=== PATIENT | female | born 1960 | race Caucasian/White ===

== ENCOUNTER 2016-09-25 22:20 | Inpatient (IN) | payer OTHER ==
[~2016-09-25] VITALS: Ht 160 cm; Wt 71.1 kg
[2016-09-26] VITALS (10 sets, daily range): BP systolic 114–154; BP diastolic 58–79; PULSE 85–90; RESP 14–19; TEMP 97.4–100.6; O2SAT 93–100
[2016-09-26] MEDS ORDERED: LORazepam 0.5 MG TAB PO PRN (06:30)
[2016-09-26] MEDS ORDERED: PROCHLORPERAZINE INJ 10 MG/2 ML VIAL IV PRN (06:30)
[2016-09-26 08:07] LABS: MEAN CORPUSCULAR HEMOGLOBIN 28.9 PG (27.0-34.0); MEAN CORPUSCULAR HGB CONC 35.7 % (32.0-36.0); RED BLOOD COUNT 2.49 MIL/MM3 (4.00-5.30); RED CELL DISTRIBUTION WIDTH 15.1 % (11.6-17.2); WHITE BLOOD COUNT 15.4 TH/MM3 (4.0-11.0)
[2016-09-26] MEDS ORDERED: LORazepam 2 MG/ML VIAL IV PUSH ONE ×2 (08:15→09:00)
[2016-09-26] MEDS ORDERED: MORPHINE SULFATE 4 MG/ML INJ IV PUSH ONE ×2 (08:15→09:00)
[2016-09-26 08:18] LABS: ALT (GPT) 14 U/L (10-53); ANION GAP 9 MEQ/L (5-15); AST (GOT) 16 U/L (15-37); BICARBONATE 24.6 MEQ/L (21.0-32.0); BLOOD UREA NITROGEN 9 MG/DL (7-18); CHLORIDE 108 MEQ/L (98-107); GLOMERULAR FILTRATION RATE 66 ML/MIN (>89); POTASSIUM 3.9 MEQ/L (3.5-5.1); SODIUM (NA) 142 MEQ/L (136-145); URIC ACID 8.3 MG/DL (2.6-6.0)
[2016-09-26 08:20] LABS: ALKALINE PHOSPHATASE 97 U/L (45-117); LDH SERUM 376 U/L (84-246); TOTAL BILIRUBIN ADULT 1.2 MG/DL (0.2-1.0)
[2016-09-26 08:27] LABS: HEMO FLAGS AUTO DIFF
[2016-09-26 08:29] LABS: HEMATOCRIT 20.1 % (35.0-46.0); PLATELET COUNT 16 TH/MM3 (150-450)
[2016-09-26 08:46] LABS: BLASTS 13 % (0-0); CORRECTED NUCLEATED RBC 2 /100 WBC (0-0); EOSINOPHILS 2 % (0-4); METAMYELOCYTES 1 % (0-1); NEUTROPHIL # MANUAL DIFF 0.2 TH/MM3 (1.8-7.7); WBC DIFF SAMPLE 100
[2016-09-26 08:49] LABS: OVALOCYTES 1+ (NORMAL); PLATELET ESTIMATE SMEAR RARE (NORMAL); PLATELET MORPHOLOGY NORMAL (NORMAL); SCAN/DIFF FINAL DIFF MANUAL
[2016-09-26] MEDS: CEFEPIME INJ 2,000 MG in SODIUM CHLORIDE 0.9% INJ 100 ML IV SCH ×2 (08:58→17:29)
[2016-09-26] MEDS ORDERED: ACETAMINOPHEN 325 MG TAB PO PRN (09:00)
[2016-09-26] MEDS ORDERED: diphenhydrAMINE HCL 25 MG CAP PO PRN (09:00)
[2016-09-26] MEDS ORDERED: SODIUM CHLOR 0.9% 250 ML INJ 250 ML IV ONE (09:00)
[2016-09-26 09:06] LABS: BONE MARROW PROCESSING COMPLETE; IRON STAIN DONE; JENNER GIEMSA STAIN DONE
[2016-09-26] MEDS: OXYMETAZOLINE HCL 0.05% 15 ML NASAL SPRAY NASAL SCH ×2 (09:22→21:00)
[2016-09-26] MEDS: AMINOCAPROIC ACID 500 MG TAB PO SCH ×3 (09:22→17:29)
--- NOTE | 2016-09-26 10:09 | HHI.PR ---
Objective Objective Results - Vital Signs Date Time Temp Pulse Resp B/P Pulse Ox O2 Delivery O2 Flow Rate FiO2 09/26/16 08:00 98.5 86 16 121/58 93 09/26/16 04:00 98.8 85 18 116/61 97 09/26/16 01:15 100.2 90 19 154/72 100 I/O 09/25/16 09/25/16 09/25/16 09/26/16 09/26/16 09/26/16 07:00 15:00 23:00 07:00 15:00 23:00 Intake Total 240 ml Balance 240 ml Intake Oral 240 ml # Voids 5 # Bowel Movements 1 Result Diagram: 09/26/1627 09/26/16 07 A/P Assessment and Plan [id number], Possible leukemia epistasis thrombocytopenia anemia severe fatique, weakness anorexia, 7 lb weight loss bone marrow biopsy done this am. Claire Shabazz Sep 26, 2016 10:09
--- NOTE | 2016-09-26 10:34 | MB ---
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 She noted some fatigue and easy bruising around August accompanied with mild cough and fever off and on. She also noted some decreased eating and decreased appetite. She has noted a seven pound weight loss but states that she has been holding some fluid for the past week and that seven pounds has been regained. The patient was sent over to [facility] to be seen by Dr. Fraser. They have just completed a bone marrow biopsy. She is resting in the bed. is at her side. She is alert, oriented and a good historian. The patient also notes some mild diarrhea, usually related to antibiotics. PAST MEDICAL HISTORY: 1. Fractured nose. Trauma x3, repaired twice. 2. Left wrist fracture. 3. Endometriosis. PAST SURGICAL HISTORY: 1. Nasal fracture repair x2. 2. ORIF left wrist. 3. Endometrial ablation. 4. D&C. 5. Tubal ligation. ALLERGIES: Seasonal allergies. MEDICATIONS: No medicines on a routine basis. SOCIAL HISTORY: The patient is , currently has a supportive with her. No alcohol, tobacco or illicit drug use. REVIEW OF SYSTEMS: A 12 point review was obtained. Positives noted are her weakness, fatigue, cough, easy bruising since August. Decreased appetite, decreased eating, 7 pound weight loss, some recent diarrhea. Anything mentioned in the HPI, otherwise systems negative, are unremarkable. PHYSICAL EXAMINATION: VITAL SIGNS: Temperature was 102 on admission, now 98.5, pulse 86, respiratory rate 18, blood pressure 121/58, was 154/72 on admission. O2 sat 93, currently on room air. GENERAL: Well-developed, well-nourished white female, looks to be her stated age, resting in bed. She is alert, oriented, cooperative. SKIN: Pale, warm and dry. No obvious wounds or rashes. HEENT: Atraumatic, normocephalic. PERRLA. Mucous membranes are slightly dry and pale. NECK: Supple. CARDIOVASCULAR: S1-S2. Rhythm is regular, no murmurs, rubs, or gallops. EXTREMITIES: No lower extremity edema. Extremities are warm to touch, pulses intact. PULMONARY: Essentially clear anterior and posterior with no rales, rhonchi or wheezing. ABDOMEN: Round, soft, nondistended. Bowel sounds are active. 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 NEUROLOGIC: Speech is clear. No headache. PSYCHIATRIC: Mood and affect are appropriate with some mild anxiety. DIAGNOSTIC DATA: Sodium 142, potassium 3.9, chloride 108, carbon dioxide 24.6, BUN 9, creatinine 0.88, GFR 66, random glucose 106, uric acid 8.3, bilirubin 1.2, lactate dehydrogenase 376, total protein 6.9, albumin 2.9. WBC count 15.4, RBC 2.49, hemoglobin 7.2, hematocrit 20.1, platelet count 16. MPD 6.7. Morphology to her platelets is normal, 1+ ovalocytes. ASSESSMENT AND PLAN: 1. Possible leukemia. Currently the patient is having her vital signs monitored. She is status post a bone marrow biopsy, results are pending. Her hemoglobin is low which explains her fatigue. She will be transfused with blood and platelets and has been followed this morning by the oncology team. 2. Leukocytosis. The patient has been started on cefepime IV. Will monitor her labs including fever. The patient has noted some diarrhea but states she thinks it is related to the antibiotics. Will check C. difficile and make sure there is no there underlying issues to her diarrhea. 3. Fatigue, weakness, easy bruising. All of these symptoms seemed to have started around August of this year. Again, the patient has possible leukemia. Further testing will be evaluated over the next few days. 4. Decreased appetite, anorexia, 7 pound weight loss. The patient has a regular diet ordered. Encouraged calories and to try to eat or graze as much as possible. 5. Fever. Unspecified but probably due to her acute findings of low platelets, fatigue, low hemoglobin, probable leukemia. She has multiple labs that have been ordered which include cytomegalovirus. Will monitor patient's vital signs q4 and as warranted. Her activity will be out of bed, 2-D echocardiogram has been ordered for an initial evaluation. The patient denies any chest pain. No shortness of breath. The patient has multiple labs ordered. She does have some IV fluids for gentle hydration, Tylenol p.r.n. for fever, Benadryl p.r.n. She has Afrin spray ordered for a mild nose bleed noted. 6. Epistaxis, Afrin has been ordered. We will evaluate and monitor probably related to her low platelet count. 7. The patient has been started on Amicar. We will continue to support her and the team caring for her. Thank you for the consultation. Dictated by: ALEC Curiel MD EDILBERTO Mabry/CELESTINE /9:56 AM /10:08 AM seen, examined by myself, Dr Calloway, today Discussed with patient Discussed with oncologist Discussed with mid level provider The exam, history, and the medical decision-making described in the above note were completed with the assistance of the mid-level provider. I reviewed the findings presented. I attest that I had a [id number] encounter with the patient on the same day, and personally performed and documented my assessment and findings in the medical record. We will follow with you on a daily basis while hospitalized Thank you for this consult MTDD
--- NOTE | 2016-09-26 11:51 | MH ---
cc: SOLEDAD GEORGE DATE OF : 1960 DATE OF ADMISSION: 09/25/2016 ADMITTING DIAGNOSIS: Anemia and thrombocytopenia. Acute myelogenous leukemia. 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 She was in previous good health. She has no past medical problem. She noticed increasing fatigue over the last four weeks. She finally came to her primary care physician who coordinated laboratory evaluation this week. Laboratory workup from 09/24/16 shows significant abnormality in the CBC and she was advised to go to the nearest emergency room. She went to [facility] in which case her CBC was indeed abnormal. White blood cell count is 18,000, hemoglobin 6.5, platelet count is 6000. She was admitted promptly. Her case was discussed with Dr. Vences. She was seen in consultation at [facility]. Her peripheral smear was reviewed. It shows immature cells consistent with blasts which comprised 40% of the peripheral blood. She was given a presumptive diagnosis of acute leukemia. She is transferred to [facility] in order to proceed with induction therapy. She denies being febrile. She has noticed some bruising. She denies any overt bleeding, no melena, bright red blood per rectum. Since being in the hospital, she has had repeat epistaxis. She was transfused red blood cells and platelets at [facility]. She tolerated transfusion well. She has never been transfused before. PAST MEDICAL HISTORY: None. PAST SURGICAL HISTORY: None. SOCIAL HISTORY: She denies any tobacco, alcohol or illicit drug use. She is , lives with her . FAMILY HISTORY: Significant for a niece who is a survivor of retinal blastoma. PHYSICAL EXAMINATION: VITAL SIGNS: Temperature 100.2, current temperature 98.5, heart rate 86, respiratory rate 16, blood pressure 121/58, saturation 93 to 100%. Mrs. Calderon is a well-developed, well-nourished pleasant woman in no acute distress. She is mildly anxious in light of the diagnosis. HEENT: Pupils are round, reactive to light and accommodation. Conjunctivae is pale. Oropharynx is clear. Neck: Supple. Lungs: Clear to auscultation. Cardiovascular: Normal rate and rhythm. Abdomen: Benign. Lower extremities: No edema, some bruising in the upper arms. LABORATORY DATA: From [facility] shows LDH of over 1000. C-reactive protein is elevated. CBC reveals significant anemia, thrombocytopenia. Post transfusion her hemoglobin is 7.2, at [facility] hemoglobin is 16, ANC of 200, blasts 13% peripheral blood. IMAGING STUDIES: No imaging study available. ASSESSMENT/PLAN Mrs. Calderon is a previously healthy 56-year-old woman who presents with acute onset of fatigue and found to have pancytopenia associated with peripheral blasts. We discussed the concerning diagnosis of acute myelogenous leukemia or acute leukemia in general. It appears to be myeloid although this will be confirmed by a bone marrow biopsy evaluation and flow cytometry. Bone marrow biopsy procedure was performed. Premedication with 0.5 milligrams of Lorazepam and 1 milligram morphine was provided. We performed the bone marrow biopsy and aspiration over the left posterior iliac crest. Good hemostasis was achieved. The patient tolerated the procedure well. Standard bone marrow tray and needle was used, standard sterile technique was used. Dry tap therefor flow cytometry and cytogenetics were sent on peripheral blood. Pending the results of flow cytometry we will prepare for induction therapy. We discussed at length for the rational for induction therapy. We will refine the recommendation for treatment of her leukemia pending on the results of the bone marrow biopsy and flow cytometry. We learned about her prognosis with the cytogenics obtained peripheral blood. FISH analysis pending the above findings. Supportive treatment for her cytopenias. We will transfuse for hemoglobin less than 7 and a platelet count less than 15. Uric acid will be checked as well as LDH. CMV, HSV, and hepatitis panel. She has no history of hepatitis or virus infection. Hospitalist will be consulted to assist in medical management. She had neutropenic fever and was started on cefepime at [facility] by myself. She is continuing cefepime at this juncture. We will monitor her episodes of diarrhea. We will adjust her cefepime dose. Vancomycin is withheld unless she has fevers again. We will obtain baseline echo. She has no cardiac abnormality. We will also get a double lumen Nicolas which is the appropriate tunneled catheter for induction chemotherapy. Her questions were answered to her satisfaction. Soledad George MD RAD/CELESTINE /10:30 AM 11:31 AM MTDAlice
--- NOTE | 2016-09-26 13:19 | ECHRPT ---
Indication: Anthrecycline CONCLUSIONS Mild thickening of the aortic valve leaflets. The tricuspid valve is not well visualized. There is trace tricuspid valve regurgitation. The estimated pulmonary arterial pressure is 29 mmHg. The pulmonary valve is not well visualized. BP: / HR: Rhythm: Sinus MEASUREMENTS (Male / Female) Normal Values Technical Quality:Fair 2D ECHO LV Diastolic Diameter PLAX 4.4 cm 4.2 - 5.9 / 3.9 - 5.3 cm LV Systolic Diameter PLAX 3.2 cm IVS Diastolic Thickness 0.9 cm 0.6 - 1.0 / 0.6 - 0.9 cm LVPW Diastolic Thickness 0.9 cm 0.6 - 1.0 / 0.6 - 0.9 cm LV Relative Wall Thickness 0.4 LVOT Diameter 2.0 cm LA Systolic Diameter LX 3.5 cm 3.0 - 4.0 / 2.7 - 3.8 cm M-MODE Aortic Root Diameter MM 3.0 cm AV Cusp Separation MM 2.2 cm DOPPLER AV Peak Velocity 137.0 cm/s AV Peak Gradient 7.5 mmHg LVOT Peak Velocity 110.0 cm/s LVOT Peak Gradient 4.8 mmHg AV Area Cont Eq pk 2.5 cm MR Peak Velocity 369.5 cm/s MR Peak Gradient 54.6 mmHg Mitral E Point Velocity 95.3 cm/s Mitral A Point Velocity 61.7 cm/s Mitral E to A Ratio 1.5 LV E' Lateral Velocity 13.1 cm/s Mitral E to LV E' Lateral Ratio 7.3 LV E' Septal Velocity 10.1 cm/s Mitral E to LV E' Septal Ratio 9.4 TR Peak Velocity 246.0 cm/s TR Peak Gradient 24.2 mmHg PV Peak Velocity 113.0 cm/s PV Peak Gradient 5.1 mmHg FINDINGS LEFT VENTRICLE Normal left ventricular size and wall thickness. The left ventricular systolic function is normal wi th an estimated ejection fraction in the range of 60-65%. Left ventricular diastolic function parameters a re normal. RIGHT VENTRICLE Normal right ventricular size and systolic function. LEFT ATRIUM The left atrial size is normal. RIGHT ATRIUM The right atrial size is normal. ATRIAL SEPTUM Normal atrial septal thickness without atrial level shunting by limited color doppler interrogation. AORTA The aortic root and proximal ascending aorta are normal in size on limited imaging. MITRAL VALVE Structurally normal mitral valve. No mitral valve stenosis or regurgitation. AORTIC VALVE Trileaflet aortic valve. No aortic valve stenosis or regurgitation. Mild thickening of the aortic valve leaflets. TRICUSPID VALVE The tricuspid valve is not well visualized. There is trace tricuspid valve regurgitation. The estimated pulmonary arterial pressure is 29 mmHg. PULMONARY VALVE The pulmonary valve is not well visualized. VESSELS The inferior vena cava is normal in size. PERICARDIUM No pericardial effusion. Johny Rangel MD (Electronically Signed) Final Date:26 September 2016 13:18
[2016-09-26] MEDS ORDERED: diphenhydrAMINE HCL 25 MG CAP PO SCH (15:30)
[2016-09-26] MEDS ORDERED: ACETAMINOPHEN 325 MG TAB PO SCH (15:30)
[2016-09-26 23:23] LABS: C. DIFF EPI 027 PRESUMPTIVE NEGATIVE (NEGATIVE); C. DIFF TOXIN PCR NEGATIVE (NEGATIVE)
[2016-09-27 00:14] LABS: BLOOD, URINE NEG (NEG); GLUCOSE,URINE NEG (NEG); HYALINE CAST, URINE 5 /lpf (RARE); KETONE, URINE NEG (NEG); MUCUS URINE FEW /lpf (OCC); NITRITE,URINE NEG (NEG); SQUAMOUS EPITHELIAL CELL URINE 1 /hpf (0-5); URINE COLOR YELLOW (YELLW/STRAW)
[2016-09-27] MEDS: AMINOCAPROIC ACID 500 MG TAB PO SCH ×4 (00:18→18:23)
--- NOTE | 2016-09-27 01:16 | RADRPT ---
EXAM DATE/TIME: 09/27/2016 01:07 [place] COMPARISON: No previous studies available for comparison. INDICATIONS : Fever tonight MEDICAL HISTORY : Leukemia. SURGICAL HISTORY : None. ENCOUNTER: Initial ACUITY: 1 day PAIN SCORE: 5/10 LOCATION: Bilateral chest FINDINGS: PA and lateral views of the chest demonstrate the lungs to be symmetrically aerated without evidence of mass, infiltrate or effusion. The heart is normal size. The central bronchopulmonary markings we ll delineated. Large air-fluid level in the retrocardiac midline measuring 9.8 cm characteristic of a large hiatus hernia. Osseous structures are intact. CONCLUSION: 1. The lungs are clear. 2. Large hiatus hernia. Braden Sanders MD on September 27, 2016 at 1:13 Board Certified Radiologist. This report was verified electronically.
[2016-09-27 04:00] VITALS: BP 105/58; PULSE 67; RESP 18; TEMP 98.1; O2SAT 97
[2016-09-27] MEDS: CEFEPIME INJ 2,000 MG in SODIUM CHLORIDE 0.9% INJ 100 ML IV SCH ×3 (05:56→21:19)
[2016-09-27] MEDS ORDERED: ACETAMINOPHEN 325 MG TAB PO PRN ×2 (06:00→13:45)
[2016-09-27] MEDS ORDERED: diphenhydrAMINE HCL 25 MG CAP PO PRN ×2 (06:00→13:45)
[2016-09-27 08:00] VITALS: BP 145/82; PULSE 87; RESP 16; TEMP 98.6; O2SAT 97
[2016-09-27 09:59] LABS: HEMATOCRIT 24.6 % (35.0-46.0); MEAN CELL VOLUME 83.8 FL (80.0-100.0); MEAN CORPUSCULAR HEMOGLOBIN 30.1 PG (27.0-34.0); RED BLOOD COUNT 2.94 MIL/MM3 (4.00-5.30); RED CELL DISTRIBUTION WIDTH 15.3 % (11.6-17.2); WHITE BLOOD COUNT 11.2 TH/MM3 (4.0-11.0)
[2016-09-27] MEDS: OXYMETAZOLINE HCL 0.05% 15 ML NASAL SPRAY NASAL SCH ×2 (09:59→21:06)
[2016-09-27 10:05] LABS: HEMO FLAGS AUTO DIFF
[2016-09-27 10:09] LABS: PLATELET COUNT 8 TH/MM3 (150-450)
[2016-09-27 10:13] LABS: ANION GAP 9 MEQ/L (5-15); AST (GOT) 15 U/L (15-37); BICARBONATE 23.8 MEQ/L (21.0-32.0); BLOOD UREA NITROGEN 9 MG/DL (7-18); CHLORIDE 106 MEQ/L (98-107); GLOMERULAR FILTRATION RATE 76 ML/MIN (>89); POTASSIUM 3.5 MEQ/L (3.5-5.1); SODIUM (NA) 139 MEQ/L (136-145)
[2016-09-27 10:14] LABS: ALT (GPT) 15 U/L (10-53)
[2016-09-27 10:16] LABS: ALKALINE PHOSPHATASE 105 U/L (45-117); TOTAL BILIRUBIN ADULT 1.5 MG/DL (0.2-1.0)
[2016-09-27] MEDS ORDERED: VANCOMYCIN INJ 1,000 MG in SODIUM CHLOR 0.9% 250 ML INJ 250 ML IV SCH (11:30)
[2016-09-27] MEDS ORDERED: ceFAZolin 2 GM PREMIX 50 ML IV SCH (11:30)
[2016-09-27 12:00] VITALS: BP 137/76; PULSE 95; RESP 18; TEMP 99.1; O2SAT 96
--- NOTE | 2016-09-27 12:36 | PD.ONC.PN ---
Subjective Subjective Remarks Tmax 100.6 overnight. Patient resting in bed. She wants to find out about being treated at [facility] in [place], as that is where all of her family is. Objective Data Date Time Temp Pulse Resp B/P Pulse Ox O2 Delivery O2 Flow Rate FiO2 09/27/16 08:00 98.6 87 16 145/82 97 09/27/16 04:00 98.1 67 18 105/58 97 09/26/16 23:35 100.6 86 18 138/79 95 09/26/16 19:55 99.8 86 17 139/75 98 09/26/16 16:45 97.6 89 16 114/69 95 09/26/16 16:10 97.4 86 16 115/65 96 09/26/16 16:00 97.4 85 16 115/65 96 09/26/16 15:00 97.5 89 14 118/58 97 Result Diagram: 09/27/16 0858 09/27/16 0858 Laboratory Results Laboratory Tests Test 09/26/16 09/26/16 09/26/16 09/26/16 13:10 13:15 21:25 23:50 Blood Type A NEGATIVE A NEGATIVE Antibody Screen NEGATIVE Crossmatch Irradiated/Leukocyte-Reduced RBC Blood Bank Comment Hepatitis A IgM Antibody NEGATIVE Hepatitis B Surface Antigen NEGATIVE Hepatitis B Core IgM Antibody NEGATIVE Hepatitis C Antibody NEGATIVE Stool C. difficile Toxin (PCR) NEGATIVE Stl C. difficile Toxin PRESUMPTIVE Epiderm 027 NEGATIVE Urine Color YELLOW Urine Turbidity CLEAR Urine pH 6.0 Urine Specific [place] 1.018 Urine Protein TRACE mg/dL Urine Glucose (UA) NEG mg/dL Urine Ketones NEG mg/dL Urine Occult Blood NEG Urine Nitrite NEG Urine Bilirubin NEG Urine Urobilinogen LESS THAN 2.0 MG/DL Urine Leukocyte Esterase NEG Urine RBC 1 /hpf Urine WBC 1 /hpf Urine Squamous Epithelial 1 /hpf Cells Urine Hyaline Casts 5 /lpf Urine Mucus FEW /lpf Microscopic Urinalysis Comment Test 09/27/16 09/27/16 01:12 08:58 Blood Type A NEGATIVE Crossmatch Leukocyte-Reduced Red Blood Cells Blood Bank Comment White Blood Count 11.2 TH/MM3 Red Blood Count 2.94 MIL/MM3 Hemoglobin 8.9 GM/DL Hematocrit 24.6 % Mean Corpuscular Volume 83.8 FL Mean Corpuscular Hemoglobin 30.1 PG Mean Corpuscular Hemoglobin 36.0 % Concent Red Cell Distribution Width 15.3 % Platelet Count 8 TH/MM3 Mean Platelet Volume 7.1 FL Neutrophils (%) (Auto) % Lymphocytes (%) (Auto) % Monocytes (%) (Auto) % Eosinophils (%) (Auto) % Basophils (%) (Auto) % Neutrophils # (Auto) TH/MM3 Lymphocytes # (Auto) TH/MM3 Monocytes # (Auto) TH/MM3 Eosinophils # (Auto) TH/MM3 Basophils # (Auto) TH/MM3 CBC Comment AUTO DIFF Sodium Level 139 MEQ/L Potassium Level 3.5 MEQ/L Chloride Level 106 MEQ/L Carbon Dioxide Level 23.8 MEQ/L Anion Gap 9 MEQ/L Blood Urea Nitrogen 9 MG/DL Creatinine 0.78 MG/DL Estimat Glomerular Filtration 76 ML/MIN Rate Random Glucose 103 MG/DL Calcium Level 8.2 MG/DL Total Bilirubin 1.5 MG/DL Aspartate Amino Transf 15 U/L (AST/SGOT) Alanine Aminotransferase 15 U/L (ALT/SGPT) Alkaline Phosphatase 105 U/L Total Protein 7.1 GM/DL Albumin 3.0 GM/DL Culture Results Microbiology Date/Time Procedure Status Source Growth 09/26/16 23:38 Urine Culture Received Urine Random Urine Pending 09/26/16 23:50 Urine Culture Received Urine Random Urine Pending 09/27/16 00:30 Aerobic Blood Culture Resulted Blood Peripheral Pending 09/27/16 00:30 Anaerobic Blood Culture - Final Resulted Blood Peripheral QNS - SEE AEROBE REPORT 09/27/16 00:35 Aerobic Blood Culture Resulted Blood Peripheral Pending 09/27/16 00:35 Anaerobic Blood Culture - Final Resulted Blood Peripheral QNS - SEE AEROBE REPORT Administered Medications Medications (Trade) Dose Ordered Sig/Abiodun Route PRN Reason Start Time Stop Time Status Last Admin Dose Admin Oxymetazoline HCl (Afrin 0.05% Ludin Gilead) 2 spray Q12HR NASAL 09/26/16 09:00 09/27/16 09:59 Aminocaproic Acid 500 mg 500 mg Q6HR PO 09/26/16 08:15 09/27/16 12:22 Cefepime HCl/ Sodium Chloride (Maxipime Inj/NS Inj) 100 ml @ 200 mls/hr Q8HR IV 09/27/16 06:00 09/27/16 05:56 Objective Remarks GENERAL: Middle aged female upright in bed in nad. SKIN: Warm and dry. HEAD: Normocephalic. EYES: No injection or drainage. NECK: Supple, trachea midline. CARDIOVASCULAR: Regular rate and rhythm RESPIRATORY: Breath sounds equal bilaterally. No accessory muscle use. GASTROINTESTINAL: Abdomen soft, non-tender, nondistended. EXTREMITIES: No cyanosis NEUROLOGICAL: No obvious focal deficit. Awake, alert, and oriented x3. Assessment/Plan Problem List: (1) Pancytopenia Status: Acute Plan: --originally seen at [facility], transferred to [facility] to proceed with induction chemotherarpy --peripheral smear shows immature cells consistent with blasts which comprised 40% of the peripheral blood. She was given a presumptive diagnosis of acute leukemia. S --s/p bone marrow biopsy on 09.26-->pathology pending --transfuse for hemoglobin less than 7 and a platelet count less than 15. --monitor Uric acid, LDH. -hepatitis negative --CMV pending Assessment 56y/o female with anemia and thrombocytopenia, suspected Acute myelogenous leukemia. Plan 1. patient requesting to transfer to [facility]. Will work to arrange transfer. 2. monitor CBC 3. await pathology 4. 1 unit platelets Attending Statement The exam, history, and the medical decision-making described in the above note were completed with the assistance of the mid-level provider. I reviewed and agree with the findings presented. I attest that I had a [id number] encounter with the patient on the same day, and personally performed and documented my assessment and findings in the medical record. Pt seen and examined. Nicolas placement cancelled. Flow cytometry still pending, pt reports better for her, better family support to be induced in [place]. Called [facility] at [place], spoke to Dr. Joseph, coordinate transfer with shell sorter on service to coordinate transfer. Plan transfusion support. Transport coming at 6AM. BM slides pending to be made in AM otherwise will be FED Ex to [place]. Pt happy with plan. Coordinate follow up after induction. Araseli Donohue Sep 27, 2016 12:35 Nicole Fraser MD Sep 27, 2016 21:55
[2016-09-27] MEDS ORDERED: SODIUM CHLOR 0.9% 250 ML INJ 250 ML IV ONE (13:00)
[2016-09-27] MEDS ORDERED: SODIUM CHLOR 0.9% 1000 ML INJ 1,000 ML IV SCH (14:00)
[2016-09-27 14:24] LABS: BLASTS 59 % (0-0); PLATELET ESTIMATE SMEAR RARE (NORMAL); PLATELET MORPHOLOGY NORMAL (NORMAL); WBC DIFF SAMPLE 100
[2016-09-27 14:25] LABS: SCAN/DIFF FINAL DIFF MANUAL
[2016-09-27 14:26] LABS: TEARDROP RBCS 1+ (NORMAL)
[2016-09-27 15:28] LABS: APTT (PATIENT) 28.8 SEC (24.3-30.1); PROTHROMBIN TIME - PATIENT 11.1 SEC (9.8-11.6)
[2016-09-27 16:00] VITALS: BP 115/63; PULSE 90; RESP 16; TEMP 100.3; O2SAT 97
--- NOTE | 2016-09-27 16:16 | HHI.PR ---
Subjective Remarks Resting in bed Awake alert No acute complaints Multiple BMs, patient states it started when antibiotics were started. C. difficile is negative (Claire Shabazz) Objective Objective Results - Vital Signs Date Time Temp Pulse Resp B/P Pulse Ox O2 Delivery O2 Flow Rate FiO2 09/27/16 12:00 99.1 95 18 137/76 96 09/27/16 08:00 98.6 87 16 145/82 97 09/27/16 04:00 98.1 67 18 105/58 97 09/26/16 23:35 100.6 86 18 138/79 95 09/26/16 19:55 99.8 86 17 139/75 98 09/26/16 16:45 97.6 89 16 114/69 95 09/26/16 16:10 97.4 86 16 115/65 96 I/O 09/26/16 09/26/16 09/26/16 09/27/16 09/27/16 09/27/16 07:00 15:00 23:00 07:00 15:00 23:00 Intake Total 240 ml 120 ml 945 ml Balance 240 ml 120 ml 945 ml Intake Oral 240 ml 120 ml 480 ml IV Total 100 ml Packed Cells 365 ml # Voids 5 2 3 2 # Bowel Movements 1 2 2 (Claire Shabazz) Result Diagram: 09/27/16 0858 09/27/16 0858 ROS General: Fatigue, Weakness, Other (10 point ROS done positives noted) (Claire Shabazz) Physical Exam Physical Exam PHYSICAL EXAMINATION GENERAL: This is a slim female who appears to be in no acute distress. She is alert and awake, HEAD: Normocephalic Facial features appear symmetric. OROPHARYNGEAL: Oropharynx clear NECK: Supple. Trachea midline without deviation. CARDIAC: Regular rhythm, regular rate, S1 and S2 are heard LUNGS: Clear to auscultation bilaterally. ABDOMEN: Soft, nontender, Bowel sounds are soft EXTREMITIES: no edema. Extremities warm NEUROLOGICAL: Patient mood and affect appropriate. SKIN:Warm and moist (Claire Shabazz) A/P Assessment and Plan Vital signs reviewed, temp 99.1, pulse 95 Labs reviewed, WBC count 11.2, hemoglobin 8.9 anemia probable secondary to her acute on chronic disease process, Thrombocytopenia platelets 8, receiving today Regular rate and 1.5 mildly increase 1. Acute leukemia. status post bone marrow biopsy on 09-26 Returned requesting to transition to [place] for her treatment regimen, [facility]. Patient spoke to oncology team here who stated they would assist in helping her transition Appreciate oncology input and plan a care 2. Leukocytosis. cefepime IV. Will monitor her labs including fever. , Noted decrease today 11.2 3. Fatigue, weakness, easy bruising. All of these symptoms seemed to have started around August of this year. Probable acute leukemia. 4. Decreased appetite, anorexia, 7 pound weight loss. The patient has a regular diet ordered. Encouraged calories and to try to eat or graze as much as possible. 5. Fever, monitor vital signs every 4, low-grade for now 6. Epistaxis, Afrin has been ordered. We will evaluate and monitor probably related to her low platelet count. Discharge planning possible today or tomorrow pending safe transfer and change of physicians Discussed with patient and her Discussed with nurse Discussed with Dr. Darby, seen on his behalf (Claire Shabazz) Assessment and Plan seen, examined by myself, Dr Darby, today Discussed with patient, she is being transferred to [facility] tomorrow Discussed with mid level provider The exam, history, and the medical decision-making described in the above note were completed with the assistance of the mid-level provider. I reviewed the findings presented. I attest that I had a [id number] encounter with the patient on the same day, and personally performed and documented my assessment and findings in the medical record. Thank you for this consultation (Carina Darby MD) Claire Shabazz Sep 27, 2016 16:16 Carina Darby MD Sep 27, 2016 20:25
--- NOTE | 2016-09-27 17:21 | HHI.DCPOC ---
Discharge Care Plan Diagnosis: (1) Pancytopenia Goals to Promote Your Health * To prevent worsening of your condition and complications * To maintain your health at the optimal level Directions to Meet Your Goals Take your medications as prescribed Follow your dietary instruction Follow activity as directed Keep your appointments as scheduled Take your immunizations and boosters as scheduled If your symptoms worsen call your PCP, if no PCP go to Urgent Care Center or Emergency Room Smoking is Dangerous to Your Health. Avoid second hand smoke Call the 24-hour hour crisis hotline for domestic abuse at Araseli Donohue Sep 27, 2016 17:21
[2016-09-27 20:00] VITALS: BP 148/62; PULSE 82; RESP 18; TEMP 98; O2SAT 98
[2016-09-28] VITALS: BP 114/61; PULSE 88; RESP 18; TEMP 99; O2SAT 95
[2016-09-28] MEDS: AMINOCAPROIC ACID 500 MG TAB PO SCH ×2 (00:34→05:24)
[2016-09-28 03:51] VITALS: BP 114/61; PULSE 75; RESP 18; TEMP 98.9; O2SAT 99
[2016-09-28] MEDS ORDERED: ACETAMINOPHEN 325 MG TAB PO PRN (04:00)
[2016-09-28] MEDS ORDERED: diphenhydrAMINE HCL 25 MG CAP PO PRN (04:00)
[2016-09-28 04:54] VITALS: BP 124/59; PULSE 76; RESP 16; TEMP 97.1
[2016-09-28 05:03] VITALS: BP 142/67; PULSE 80; RESP 16; TEMP 97.1
[2016-09-28] MEDS: CEFEPIME INJ 2,000 MG in SODIUM CHLORIDE 0.9% INJ 100 ML IV SCH (05:25)
[2016-09-28 05:26] VITALS: BP 116/58; PULSE 75; RESP 16; TEMP 97.9
--- NOTE | 2016-09-28 09:09 | HHI.DS ---
Discharge Summary Admission Date Sep 25, 2016 at 22:20 Discharge Date: Sep 27, 2016 Admitting Diagnosis Pancytopenia, suspected leukemia (1) Pancytopenia Diagnosis: Principal Brief History Mrs. Calderon is a 56 year-old female who noted increasing fatigue for several weeks. She presented to her PCP who coordinated labs which were significantly abnormal. She was advised to go to ED. She presented to ED in [facility] and was seen in consultation with Dr. Nicole Fraser. Peripheral blood smear showed immature blasts consisting of 40% of the peripheral blood. As acute leukemia was suspected she was transferred to [facility] to coordinate induction chemotherapy. CBC/BMP: 09/27/16 0858 09/27/16 0858 Significant Findings Laboratory Tests Test 09/26/16 09/26/16 09/27/16 07:27 23:50 08:58 White Blood Count 15.4 TH/MM3 11.2 TH/MM3 (4.0-11.0) (4.0-11.0) Red Blood Count 2.49 MIL/MM3 2.94 MIL/MM3 (4.00-5.30) (4.00-5.30) Hemoglobin 7.2 GM/DL 8.9 GM/DL (11.6-15.3) (11.6-15.3) Hematocrit 20.1 % 24.6 % (35.0-46.0) (35.0-46.0) Platelet Count 16 TH/MM3 8 TH/MM3 (150-450) (150-450) Mean Platelet Volume 6.7 FL (7.0-11.0) Lymphocytes % 84 % (9-44) Neutrophils # (Manual) 0.2 TH/MM3 0.0 TH/MM3 (1.8-7.7) (1.8-7.7) Nucleated Red Blood Cells 2 /100 WBC (0-0) Blastocytes 13 % (0-0) 59 % (0-0) Platelet Estimate RARE (NORMAL) RARE (NORMAL) Ovalocytes 1+ (NORMAL) Chloride Level 108 MEQ/L (98-107) Estimat Glomerular Filtration 66 ML/MIN (>89) 76 ML/MIN (>89) Rate Uric Acid 8.3 MG/DL (2.6-6.0) Total Bilirubin 1.2 MG/DL 1.5 MG/DL (0.2-1.0) (0.2-1.0) Lactate Dehydrogenase 376 U/L (84-246) Albumin 2.9 GM/DL 3.0 GM/DL (3.4-5.0) (3.4-5.0) Urine Mucus FEW /lpf (OCC) Tear Drop Cells 1+ (NORMAL) Calcium Level 8.2 MG/DL (8.5-10.1) Imaging Last Impressions Chest X-Ray 09/26/16 0000 Signed Impressions: Service Date/Time: Tuesday, September 27, 2016 01:07 - CONCLUSION: 1. The lungs are clear. 2. Large hiatus hernia. Braden Sanders MD PE at Discharge please see physical exam from progress note on 09.27.16 Transfer Summary On 09.27.16 patient requested transfer to [facility] to be closer to family. Dr. Nicole Fraser called and spoke with concrete form setter and finisher physician who accepted patient for transfer under service of Dr. Joseph. refuge manager was notified and consult placed. Patient was given platelet transfusion prior to transfer. Transfer was coordinated through call center and patient was transported via evac. Hospital Course Patient was transferred to [facility] on 09.26.16. A bone marrow biopsy and aspirate were performed on day of admission. Antibiotics were started for neutropenic fever and transfusion protocol initiated for low platelets and hgb. On 09.27.16, patient requested transfer to [facility]. Appropriate referrals were made and patient was transferred at 6AM on 09.28.16. Pt Condition on Discharge: Stable Discharge Disposition: Trnsfr to Other Facility Discharge Instructions DIET: Follow Instructions for: Low Bacteria Diet Activities you can perform: Regular-No Restrictions Araseli Donohue Sep 28, 2016 09:09
[2016-09-29 23:53] LABS: CYTOMEGALOVIRUS IGM LESS THAN 30.00 AU/mL (())
== END 2016-09-28 06:05 | disposition short-term general hospital (02) | DRG 835 ==
LOC: HOCB 22:20
PROVIDERS: ADMIT Internal Medicine Hematology & Oncology; ATTEND Internal Medicine Hematology & Oncology
PROC: 30233R1 Transfusion of Nonautologous Platelets into Peripheral Vein, Percutaneous Approach (ICD-10-PCS; principal; 2016-09-26)
PROC: 30233N1 Transfusion of Nonautologous Red Blood Cells into Peripheral Vein, Percutaneous Approach (ICD-10-PCS; 2016-09-26)
PROC: 07DR3ZX Extraction of Iliac Bone Marrow, Percutaneous Approach, Diagnostic (ICD-10-PCS; 2016-09-26)
DX: C92.00 Acute myeloblastic leukemia, not having achieved remission (principal); D61.818 Other pancytopenia; R63.0 Anorexia; R04.0 Epistaxis; R19.7 Diarrhea, unspecified
CPT/HCPCS: 36430; 71020; 80053; 80074; 81001; 83615; 84550; 85007; 85027; 85097; 85610; 85730; 86644; 86645; 86850; 86900; 86901; 86920; 87040; 87086; 87493; 88305; 88311; 88313; 93306; J0692; J2060; J2270; J7030; J7050; P9037; P9040